=== PATIENT | female | born 1960 | race Caucasian/White ===

== ENCOUNTER → 2017-01-07 | Outpatient (CLI) | payer BC ==
[~2017-01-07] MED LIST: ASPIRIN81 MG PO; ASTELIN137 MCG; FENOFIBRATE; FISH OIL500 M2 PO; FLONASE16 GM; GLUCOPHAGE500 MG PO; NORVASC; NORVASC10 MG PO; PHENERGAN12.5 MG PO; PHENERGAN25 MG PO; PREVACID PO; PRILOSEC; TRAZODONE; VOLTAREN50 MG PO; WELLBUTRIN SR150 MG PO; WELLBUTRIN XL; WELLBUTRIN XL150 M1 PO; ZYRTEC; ZYRTEC10 M2 PO
--- NOTE | ~2017-01-07 | CR184 ---
[facility] A Service of [facility] RADIOLOGY TEXT RESULTS PATIENT: MARIBELL THOMSON LOCATION: [facility] : 62 UNIT #: [id number] AGE: [address]: Priscilla Colin MD SEX: F ORDER DR: [id number] [facility] [address] [place], [place] [address] [id number] O MR#: [id number] Acc #: [id number] NAME: MARIBELL THOMSON : 1960 SEX: F STUDY DATE/TIME: 01/07/2017 17:12 UNIT: [facility] ROOM: STUDY DESCRIPTION: CR Lumbar Spine Min 4 Views Attending Physician: Priscilla Colin M.D. Referring Physician: Priscilla Colin M.D. Ordering Physician: Priscilla Colin M.D. Primary Care Physician: Priscilla Colin M.D. MEDICAL IMAGING REPORT This report is preliminary unless electronic signature is present EXAM Lumbar spine 5 views HISTORY Low back pain radiating down left leg x2 months. FINDINGS AP, lateral and cone lateral views of the lumbar spine submitted as well as bilateral obliques. The examination demonstrates a grade 1 spondylolisthesis L4 on L5 with minimal disc space narrowing. Mild multilevel facet arthropathy lower lumbar spine. No spondylolysis is identified. SI joints appear normal. Degenerative disc change is noted T11-T12. Soft tissues unremarkable. IMPRESSION Mild grade 1 spondylolisthesis L4 on L5 most likely on the basis of mild lower lumbar spine facet arthropathy L4-5, L5-S1. Dictated by... Zeyad Gonzalez M.D. THIS IS AN ELECTRONICALLY VERIFIED REPORT Zeyad Gonzalez M.D. at 01/08/2017 2:22 PM MONSERRAT/liliana TD: 01/08/2017 00:15 JOB #: [id number] MEDICAL IMAGING REPORT Page 1 of 1 COPY
== END | disposition home or self-care (01) ==
LOC: CRAD 16:50
DX: M51.36 Other intervertebral disc degeneration, lumbar region (principal); M43.16 Spondylolisthesis, lumbar region; M47.896 Other spondylosis, lumbar region
CPT/HCPCS: 72110